=== PATIENT | female | born 1945 | race Caucasian/White ===

== ENCOUNTER → 2016-08-16 | Outpatient (REF) | payer MEDICARE ==
[~2016-08-16] MED LIST: /WARF5TA; HCTZ25 PO; METROPROLOL; VICO5TAB; metoprolol tartrate
== END ==
LOC: M LAB REF 12:55
PROVIDERS: ATTEND Internal Medicine Medical Oncology
DX: C50.919 Malignant neoplasm of unspecified site of unspecified female breast (principal)

== ENCOUNTER → 2016-10-11 | Outpatient (REF) | payer MEDICARE | LOC: M LAB REF 12:17 | PROVIDERS: ATTEND Physician Assistant | DX: E78.00 Pure hypercholesterolemia, unspecified (principal) ==

== ENCOUNTER → 2016-11-08 | Outpatient (REF) | payer MEDICARE | LOC: M LAB REF 13:33 | PROVIDERS: ATTEND Internal Medicine Medical Oncology | DX: C50.919 Malignant neoplasm of unspecified site of unspecified female breast (principal) ==

== ENCOUNTER → 2017-02-01 | Outpatient (REF) | payer MEDICARE | LOC: M LAB REF 12:49 | PROVIDERS: ATTEND Internal Medicine Medical Oncology | DX: C50.919 Malignant neoplasm of unspecified site of unspecified female breast (principal) ==

== ENCOUNTER → 2017-04-03 | Outpatient (REF) | payer MEDICARE ==
[2017-04-03 14:26] LABS: MAGNESIUM LEVEL 2.6 MG/DL (1.8-2.4)
== END ==
LOC: M LAB REF 13:37
DX: I48.2 Chronic atrial fibrillation (principal)
CPT/HCPCS: 83735

== ENCOUNTER → 2017-04-05 | Outpatient (CLI) | payer MEDICARE | LOC: M PLARAD 10:43 | DX: C50.919 Malignant neoplasm of unspecified site of unspecified female breast (principal); C78.7 Secondary malignant neoplasm of liver and intrahepatic bile duct; Z79.51 Long term (current) use of inhaled steroids | CPT/HCPCS: 78815 ==

== ENCOUNTER → 2017-04-07 | Outpatient (CLI) | payer MEDICARE | LOC: M RAD 07:52 | DX: C50.919 Malignant neoplasm of unspecified site of unspecified female breast (principal); C79.51 Secondary malignant neoplasm of bone | CPT/HCPCS: 78306 ==